=== PATIENT | male | born 1965 | race Two or more races ===

== ENCOUNTER 2023-12-13 13:23 | Outpatient (RCR) | payer MEDICAID, SELFPAY | END 2023-12-29 23:59 | disposition home or self-care (01) | LOC: CPTX 13:23 | PROVIDERS: PCP Family Medicine; Referring Provider Family Medicine; Visit Provider Family Medicine | DX: Z53.8 Procedure and treatment not carried out for other reasons (principal) ==

== ENCOUNTER → 2024-11-20 | Outpatient (CLI) | payer MEDICAID, SELFPAY ==
--- NOTE | 2024-11-20 11:54 | XR_ITS ---
Examination: Ultrasound soft tissue extremity left amputation stump TECHNIQUE: Grayscale sonographic images soft tissue left amputation stump Date and time: November 20, 2024 1201 hours INDICATIONS: Palpable lump at the below the knee amputation stump which was drained 10 days ago, lump beginning 4 months ago FINDINGS: Cystic area at the amputation stump 3.1 x 1.2 x 4.1 cm IMPRESSION: Findings consistent with soft tissue abscess at the amputation stump, consider MRI lower extremity without contrast follow-up
== END | disposition home or self-care (01) ==
LOC: COPL 11:08 → CDIM 11-27 16:22
PROVIDERS: PCP Nurse Practitioner Family; Referring Provider Nurse Practitioner Family; Visit Provider Nurse Practitioner Family
DX: L02.416 Cutaneous abscess of left lower limb (principal); Z89.512 Acquired absence of left leg below knee
CPT/HCPCS: 76882